=== PATIENT | female | born 1990 | race Caucasian/White ===

== ENCOUNTER 2018-05-04 10:26 | Emergency (ER) | payer OTHER ==
[~2018-05-04] VITALS: Ht 162.6 cm; Wt 57.6 kg
[2018-05-04 11:18] VITALS: Ht 162.6 cm; Wt 57.6 kg
[2018-05-04 12:50] VITALS: BP 108/75
== END 2018-05-04 13:16 | disposition home or self-care (01) ==
LOC: ED 10:26
DX: O20.0 Threatened abortion (principal)

== ENCOUNTER 2018-08-14 21:13 | Emergency (ER) | payer OTHER ==
[~2018-08-14] VITALS: Ht 160 cm; Wt 55.8 kg
[2018-08-14 21:38] VITALS: Ht 160 cm; Wt 55.8 kg
[2018-08-14 22:19] LABS: BASOPHIL % 0.3 % (0-2); PLATELET COUNT 196 x10^3mcL (130-400); RED CELL DISTRIBUTION WIDTH 13.1 % (11.5-14.5)
[2018-08-14 22:25] LABS: UA SPECIFIC GRAVITY >=1.030 (1.005-1.035); microscopic required? YES; urine erythrocyte 3+ (NEGATIVE)
[2018-08-14 23:43] VITALS: BP 105/63
== END 2018-08-14 23:43 | disposition home or self-care (01) ==
LOC: ED 21:13
PROVIDERS: Specialist
DX: O20.0 Threatened abortion (principal); O23.41 Unspecified infection of urinary tract in pregnancy, first trimester; Z3A.01 Less than 8 weeks gestation of pregnancy
CPT/HCPCS: 36415

== ENCOUNTER 2018-08-17 20:14 | Emergency (ER) | payer OTHER ==
[~2018-08-17] VITALS: Ht 162.6 cm; Wt 56.2 kg
[2018-08-17 20:42] VITALS: Ht 162.6 cm; Wt 56.2 kg
[2018-08-17 21:52] LABS: BASOPHIL % 0.1 % (0-2); PLATELET COUNT 194 x10^3mcL (130-400); RED CELL DISTRIBUTION WIDTH 13.2 % (11.5-14.5)
[2018-08-18 01:00] VITALS: BP 103/68
== END 2018-08-18 01:00 | disposition home or self-care (01) ==
LOC: ED 20:14
PROVIDERS: Emergency Medicine
DX: O03.9 Complete or unspecified spontaneous abortion without complication (principal); Z3A.01 Less than 8 weeks gestation of pregnancy
CPT/HCPCS: J0696; J2270; J2405

== ENCOUNTER 2018-09-29 19:26 | Emergency (ER) | payer OTHER ==
[~2018-09-29] VITALS: Ht 162.6 cm; Wt 56.2 kg
[2018-09-29 19:30] VITALS: Ht 162.6 cm; Wt 56.2 kg
[2018-09-29 21:45] VITALS: BP 101/72
== END 2018-09-29 21:45 | disposition home or self-care (01) ==
LOC: ED 19:26
DX: R51 Headache (principal); N91.2 Amenorrhea, unspecified